=== PATIENT | female | born 1995 | race Caucasian/White ===

== ENCOUNTER 2017-12-12 16:55 | Emergency (ER) | payer OTHER ==
[2017-12-12 17:26] VITALS: BP 111/61
--- NOTE | 2017-12-12 18:00 | UC ---
Throat Pain/Nasal [place] HPI - HPI Summary HPI Summary: patient has a sore thraot for the past day - History of Current Complaint Chief Complaint: UCGeneralIllness Stated Complaint: SORE THROAT Time Seen by Provider: 12/12/17 17:21 Hx Obtained From: Patient Hx Last Menstrual Period: 11/20/17 ?: No Onset/Duration: Sudden Onset, Lasting Days Severity: Moderate Pain Intensity: 7 Associated Signs & Symptoms: Positive: Dysphagia - Allergies/Home Medications Allergies/Adverse Reactions: Allergies Allergy/AdvReac Type Severity Reaction Status Date / Time No Known Allergies Allergy Verified 12/12/17 17:26 Home Medications: Home Medications Albuterol 2.5MG/3ML (0.083%)* [Ventolin 2.5 MG/3 ML NEB.PATRIC*] 2.5 mg INH Q4H PRN 12/12/17 [History Confirmed 12/12/17] Albuterol HFA INHALER* [Ventolin HFA Inhaler*] 2 puff INH Q4H PRN 12/12/17 [ History Confirmed 12/12/17] Sertraline* [Zoloft*] 100 mg PO BEDTIME 12/12/17 [History Confirmed 12/12/17] PMH/Surg Hx/FS Hx/Imm Hx Previously Healthy: Yes - Surgical History Surgical History: None - Family History Known Family History: Positive: Hypertension - Social History Alcohol Use: Occasionally Alcohol Amount: socially Substance Use Type: None Smoking Status (MU): Never Smoked Tobacco Review of Systems Constitutional: Negative Skin: Negative Eyes: Negative ENT: Sore Throat Respiratory: Negative Cardiovascular: Negative Gastrointestinal: Negative Genitourinary: Negative Motor: Negative Neurovascular: Negative Musculoskeletal: Negative Neurological: Negative Psychological: Negative Is Patient Immunocompromised?: No All Other Systems Reviewed And Are Negative: Yes Physical Exam Triage Information Reviewed: Yes Appearance: Well-Appearing, Well-Nourished, Pain Distress Vital Signs: Initial Vital Signs Temp 97.5 F 12/12/17 17:21 Pulse 76 12/12/17 17:21 Resp 17 12/12/17 17:21 BP 111/61 12/12/17 17:21 Pulse Ox 100 12/12/17 17:21 Vital Signs Reviewed: Yes Eyes: Positive: Conjunctiva Clear ENT: Positive: Pharyngeal erythema, Tonsillar exudate Dental Exam: Normal Neck exam: Normal Neck: Positive: Supple, Nontender, No Lymphadenopathy Respiratory Exam: Normal Respiratory: Positive: Chest non-tender, Lungs clear, Normal breath sounds Cardiovascular Exam: Normal Cardiovascular: Positive: RRR, No Murmur, Pulses Normal Abdominal Exam: Normal Musculoskeletal Exam: Normal Neurological Exam: Normal Psychological Exam: Normal Skin Exam: Normal Throat Pain/Nasal Course/Dx - Course Course Of Treatment: hx obtained, meds reviewed, rapid strep neg, removed 4 tonsil stones - Differential Dx/Diagnosis Provider Diagnoses: tonsilolith, bilateral Discharge - Sign-Out/Discharge Documenting (check all that apply): Patient Departure All imaging exams completed and their final reports reviewed: Yes - Discharge Plan Condition: Stable Disposition: HOME Referrals: No Primary Care Phys,NOPCP [Primary Care Provider] - Additional Instructions: 1. you have tonsil stones. Some people develop them more than the others. you can pluck them out on your own as we did today. gargle with salt water a few times a day for the next few days. you can do this daily as well which will help minimize the development of the stones. Decreasing your dairy intake with help produce less mucus. - Billing Disposition and Condition Condition: STABLE Disposition: Home
== END 2017-12-12 18:04 | disposition home or self-care (01) ==
LOC: UCCORT 16:55
DX: J35.8 Other chronic diseases of tonsils and adenoids (principal); I10 Essential (primary) hypertension
CPT/HCPCS: 87651; 99201; G0463

== ENCOUNTER 2018-01-11 20:34 | Emergency (ER) | payer OTHER ==
[2018-01-11 20:46] VITALS: BP 119/64
[2018-01-11] MEDS ORDERED: predniSONE TAB* 20 MG PO ONE (21:31)
--- NOTE | 2018-01-11 21:41 | UC ---
Respiratory Complaint HPI - HPI Summary HPI Summary: The patient is a 22-year-old asthmatic with a 2 day history of nasal congestion , postnasal drip, cough and wheezing. She has had no fever or chills. His had no myalgias or arthralgias. She has had to use her rescue inhaler. - History of Current Complaint Chief Complaint: UCRespiratory Stated Complaint: COUGH, CONGESTION, HEADACHE Time Seen by Provider: 01/11/18 21:26 Hx Obtained From: Patient Hx Last Menstrual Period: 01/07/18 Onset/Duration: Gradual Onset, Lasting Days Timing: Constant Severity Initially: Mild Severity Currently: Moderate Pain Intensity: 0 Pain Scale Used: 0-10 Numeric Character: Cough: Nonproductive Aggravating Factors: Exertion, Deep Breaths Alleviating Factors: Bronchodilator Associated Signs And Symptoms: Positive: Wheezing, URI, Nasal Congestion - Allergies/Home Medications Allergies/Adverse Reactions: Allergies Allergy/AdvReac Type Severity Reaction Status Date / Time No Known Allergies Allergy Verified 01/11/18 20:42 PMH/Surg Hx/FS Hx/Imm Hx Previously Healthy: Yes Respiratory History: Asthma - Surgical History Surgical History: None - Family History Known Family History: Positive: Hypertension, Other - hypothyroidism - Social History Alcohol Use: Occasionally Alcohol Amount: socially Substance Use Type: None Smoking Status (MU): Never Smoked Tobacco - Immunization History Most Recent Tetanus Shot: UTD Review of Systems Constitutional: Negative Skin: Negative Eyes: Negative ENT: Nasal Discharge, Sinus Congestion Respiratory: Cough, Other - wheezing Cardiovascular: Negative Gastrointestinal: Negative Genitourinary: Negative Motor: Negative Neurovascular: Negative Musculoskeletal: Negative Neurological: Negative Psychological: Negative All Other Systems Reviewed And Are Negative: Yes Physical Exam Triage Information Reviewed: Yes Appearance: Well-Appearing, No Pain Distress, Well-Nourished Vital Signs: Initial Vital Signs Temp 98.8 F 01/11/18 20:43 Pulse 83 01/11/18 20:43 Resp 17 01/11/18 20:43 BP 119/64 01/11/18 20:43 Pulse Ox 100 01/11/18 20:43 Vital Signs Reviewed: Yes Eyes: Positive: Conjunctiva Clear ENT: Positive: Hearing grossly normal, Nasal congestion, Nasal drainage, TMs normal, Uvula midline. Negative: Tonsillar swelling, Tonsillar exudate, Trismus , Muffled voice, Hoarse voice, Sinus tenderness Dental Exam: Normal Neck: Positive: Supple, Nontender, No Lymphadenopathy Respiratory: Positive: No respiratory distress, No accessory muscle use, Wheezing - with forced expiration Cardiovascular: Positive: RRR, No Murmur, Pulses Normal Musculoskeletal: Positive: ROM Intact, No Edema Neurological: Positive: Alert Psychological Exam: Normal Skin Exam: Normal UC Diagnostic Evaluation - Laboratory O2 Sat by Pulse Oximetry: 100 - normal, not hypoxic Respiratory Course/Dx - Differential Dx/Diagnosis Provider Diagnoses: viral URI. bronchospasm Discharge - Sign-Out/Discharge Documenting (check all that apply): Patient Departure All imaging exams completed and their final reports reviewed: No Studies - Discharge Plan Condition: Stable Disposition: HOME Prescriptions: predniSONE [Deltasone 20 MG TAB] 40 mg PO DAILY #10 tab Patient Education Materials: Bronchospasm (ED) Referrals: No Primary Care Phys,NOPCP [Primary Care Provider] - Additional Instructions: use your rescue inhaler as directed (2 puffs 4x day as needed for wheezing) recheck for fever/worsening symptoms or if not markedly improved in 3-4 days - Billing Disposition and Condition Condition: STABLE Disposition: Home
== END 2018-01-11 21:40 | disposition home or self-care (01) ==
LOC: UCCORT 20:34
DX: J06.9 Acute upper respiratory infection, unspecified (principal); J98.01 Acute bronchospasm
CPT/HCPCS: 99212; G0463; J7512

== ENCOUNTER 2018-11-20 18:04 | Emergency (ER) | payer OTHER ==
[2018-11-20 18:30] VITALS: BP 116/63
--- NOTE | 2018-11-20 19:10 | UC ---
Head Injury HPI - HPI Summary HPI Summary: fell hitting left side of face while playing rugby--no loc, no n/v, no dizziness , visual deficits or neurological deficits - History Of Current Complaint Chief Complaint: UCHeadInjury Stated Complaint: HEAD INJURY Time Seen by Provider: 11/20/18 19:00 Hx Obtained From: Patient Hx Last Menstrual Period: started today ?: No Mechanism Of Injury: fall Onset/Duration: Sudden Onset Pain Intensity: 5 Pain Scale Used: 0-10 Numeric - some left cheek discomfort and headache Aggravating Factor(s): Nothing Alleviating Factor(s): Nothing Associated Signs And Symptoms: Positive: Negative - Allergies/Home Medications Allergies/Adverse Reactions: Allergies Allergy/AdvReac Type Severity Reaction Status Date / Time No Known Allergies Allergy Verified 11/20/18 18:30 PMH/Surg Hx/FS Hx/Imm Hx Previously Healthy: No Respiratory History: Asthma Psychological History: Depression - Surgical History Surgical History: None - Family History Known Family History: Positive: Hypertension, Other - hypothyroidism - Social History Occupation: Student Lives: Dormitory/Roommates Alcohol Use: Weekly Alcohol Amount: socially Substance Use Type: Marijuana Substance Use Comment - Amount & Last Used: occasional Smoking Status (MU): Never Smoked Tobacco - Immunization History Most Recent Tetanus Shot: UTD Review of Systems All Other Systems Reviewed And Are Negative: Yes Constitutional: Positive: Negative Skin: Positive: Negative Eyes: Positive: Negative ENT: Positive: Negative Respiratory: Positive: Negative Cardiovascular: Positive: Palpitations Gastrointestinal: Positive: Negative Genitourinary: Positive: Negative Motor: Positive: Negative Neurovascular: Positive: Negative Musculoskeletal: Positive: Negative Neurological: Positive: Negative Psychological: Positive: Negative Is Patient Immunocompromised?: No Physical Exam Triage Information Reviewed: Yes Appearance: Well-Appearing, No Pain Distress, Well-Nourished Vital Signs: Initial Vital Signs Temp 99.3 F 11/20/18 18:23 Pulse 66 11/20/18 18:23 Resp 18 11/20/18 18:23 BP 116/63 11/20/18 18:23 Pulse Ox 100 11/20/18 18:23 Vital Signs Reviewed: Yes Eye Exam: Normal Eyes: Positive: Conjunctiva Clear, Other: - perrla, eomi, fundascopic exam wnl ENT Exam: Normal ENT: Positive: Normal ENT inspection, Hearing grossly normal, Pharynx normal, TMs normal. Negative: Nasal congestion, Trismus, Muffled voice, Hoarse voice, Dental tenderness, Sinus tenderness Dental Exam: Normal Neck exam: Normal Neck: Positive: Supple, Nontender, No Lymphadenopathy Respiratory Exam: Normal Respiratory: Positive: Chest non-tender, Lungs clear, Normal breath sounds, No respiratory distress, No accessory muscle use Cardiovascular Exam: Normal Cardiovascular: Positive: RRR, No Murmur, Pulses Normal, Brisk Capillary Refill Musculoskeletal Exam: Normal Musculoskeletal: Positive: Strength Intact, ROM Intact, No Edema Neurological Exam: Normal Neurological: Positive: Alert, Muscle Tone Normal, Other: - no pronator drift, rhombery wnl, balence and gait wnl Psychological Exam: Normal Skin Exam: Normal Skin: Positive: Other - bruise right cheek-- Head Injury Course/Dx - Course Course Of Treatment: ice and ibuprofen follow with sports medicine for continue concussion assessment - Differential Dx/Diagnosis Provider Diagnosis: Head injury consultation, Bruise of face Discharge ED - Sign-Out/Discharge Documenting (check all that apply): Patient Departure All imaging exams completed and their final reports reviewed: No Studies - Discharge Plan Condition: Stable Disposition: HOME Patient Education Materials: Head Injury (ED) Referrals: Rea Cruz MD [Medical Doctor] - (call and ask for an appointment in the [place] office) - Billing Disposition and Condition Condition: STABLE Disposition: Home - Attestation Statements Provider Attestation: Per institutional requirements, I have reviewed the chart, however, I was not consulted specifically or made aware of this patient by the midlevel provider. I did not personally evaluate, interact with , or disposition this patient.
== END 2018-11-20 19:16 | disposition home or self-care (01) ==
LOC: UCCORT 18:04
DX: S09.90XA Unspecified injury of head, initial encounter (principal); S00.83XA Contusion of other part of head, initial encounter; W18.30XA Fall on same level, unspecified, initial encounter; Y93.63 Activity, rugby; Y92.328 Other athletic field as the place of occurrence of the external cause
CPT/HCPCS: 99211; G0463

== ENCOUNTER 2019-05-17 12:48 | Emergency (ER) | payer OTHER ==
[2019-05-17 13:44] VITALS: BP 119/67
--- NOTE | 2019-05-17 14:47 | UC ---
Hand/Wrist HPI - HPI Summary HPI Summary: 23-year-old female presents with complaints of persistent right hand pain, swelling, and bruising. States she punched a wall 6 days ago. She was evaluated at the [facility] emergency room at the time of injury but is unsure X-ray findings as she states that she was intoxicated at the time. Complains of pain at the base of the middle, ring, and little fingers of the right hand. States range of motion is slightly limited due to the pain and swelling. Denies any numbness or tingling. - History Of Current Complaint Chief Complaint: UCUpperExtremity Stated Complaint: RIGHT HAND INJURY Time Seen by Provider: 05/17/19 14:40 Hx Obtained From: Patient Hx Last Menstrual Period: 05/11/19 Pain Intensity: 4 - Allergies/Home Medications Allergies/Adverse Reactions: Allergies Allergy/AdvReac Type Severity Reaction Status Date / Time No Known Allergies Allergy Verified 05/17/19 13:38 Home Medications: Home Medications Albuterol 2.5MG/3ML (0.083%)* [Ventolin 2.5 MG/3 ML NEB.PATRIC*] 2.5 mg INH Q4H PRN 12/12/17 [History Confirmed 05/17/19] Albuterol HFA INHALER* [Ventolin HFA Inhaler*] 2 puff INH Q4H PRN 12/12/17 [ History Confirmed 05/17/19] Sertraline* [Zoloft*] 100 mg PO BEDTIME 12/12/17 [History Confirmed 05/17/19] PMH/Surg Hx/FS Hx/Imm Hx Respiratory History: Asthma Psychological History: Depression - Surgical History Surgical History: None - Family History Known Family History: Positive: Hypertension, Other - hypothyroidism - Social History Occupation: Student Lives: Dormitory/Roommates Alcohol Use: Weekly Alcohol Amount: socially Substance Use Type: Marijuana Substance Use Comment - Amount & Last Used: occasional Smoking Status (MU): Never Smoked Tobacco - Immunization History Most Recent Tetanus Shot: UTD Review of Systems All Other Systems Reviewed And Are Negative: Yes Constitutional: Positive: Negative Skin: Positive: Bruising Respiratory: Positive: Negative Cardiovascular: Positive: Negative Gastrointestinal: Positive: Negative Genitourinary: Positive: Negative Motor: Negative: Weakness Neurovascular: Negative: Decreased Sensation Musculoskeletal: Positive: Decreased ROM, Other: - See HPI Neurological/Mental Status: Positive: Negative Is Patient Immunocompromised?: No Physical Exam - Summary Physical Exam Summary: GENERAL APPEARANCE: Well developed, well nourished, alert and cooperative, and appears to be in no acute distress. CARDIAC: Normal S1 and S2. No S3, S4 or murmurs. Rhythm is regular. There is no peripheral edema, cyanosis or pallor. Extremities are warm and well perfused. Capillary refill is less than 2 seconds. Peripheral pulses intact. LUNGS: Clear to auscultation without rales, rhonchi, wheezing or diminished breath sounds. ABDOMEN: Positive bowel sounds. Soft, nondistended, nontender. No guarding or rebound. No masses or hepatosplenomegally. MUSKULOSKELETAL: Normal muscular development. Normal gait. EXTREMITIES: Tenderness over the 3rd, 4th, and 5th distal metacarpals of the right hand without gross deformity. Moderate ecchymosis and edema present to the dorsal right hand. Full ROM. Circulation and sensation intact. SKIN: Skin normal color, texture and turgor with no lesions or eruptions. Triage Information Reviewed: Yes Vital Signs: Initial Vital Signs Temp 97.7 F 05/17/19 13:39 Pulse 78 05/17/19 13:39 Resp 18 05/17/19 13:39 BP 119/67 05/17/19 13:39 Pulse Ox 98 05/17/19 13:39 Vital Signs Reviewed: Yes Diagnostics - Radiology No standard instances Radiology Interpretation Completed By: Radiologist Summary of Radiographic Findings: Order Information: HAND - RIGHT MINIMUM 3 VIEWS. HISTORY: pain, bruising, swelling s/p punching wall . COMPARISONS: None relevant available at the time of dictation. VIEWS: 4, Frontal, lateral, and oblique views of the right hand. FINDINGS: BONE DENSITY: Normal. BONES: There is no displaced fracture. JOINTS: There is no arthropathy. ALIGNMENT: There is no dislocation. SOFT TISSUES: There is soft tissue swelling along the dorsal aspect of the hand. OTHER FINDINGS: None. IMPRESSION: SOFT TISSUE SWELLING. NO ACUTE OSSEOUS INJURY. Hand/Wrist Course/Dx - Course Course Of Treatment: 23-year-old female presents with complaints of persistent right hand pain, swelling, and bruising. States she punched a wall 6 days ago. She was evaluated at the [facility] emergency room at the time of injury but is unsure X-ray findings as she states that she was intoxicated at the time. Complains of pain at the base of the middle, ring, and little fingers of the right hand. States range of motion is slightly limited due to the pain and swelling. Denies any numbness or tingling. Afebrile. Vital signs stable. Patient had tenderness over the 3rd, 4th, and 5th distal metacarpals of the right hand without gross deformity. Moderate ecchymosis and edema present to the dorsal right hand. Full ROM. Circulation and sensation intact. Remainder of exam unremarkable. X-ray showed no acute osseous injury. Reviewed results with the patient. Recommending conservative treatment for her right hand contusion. She is to follow-up with orthopedic surgery in 5-7 days if symptoms are not improving. Anticipatory guidance and warning symptoms were reviewed with patient. Verbalizes understanding and agrees with plan of care. - Differential Dx/Diagnosis Differential Diagnosis/HQI/PQRI: Contusion, Dislocation, Fracture, Sprain Provider Diagnosis: Contusion of right hand Discharge ED - Sign-Out/Discharge Documenting (check all that apply): Patient Departure All imaging exams completed and their final reports reviewed: Yes - Discharge Plan Condition: Stable Disposition: HOME Patient Education Materials: Contusion in Adults (ED) Referrals: No Primary Care Phys,NOPCP [Primary Care Provider] - Mitch Torres MD [Medical Doctor] - 5 Days (Call for appointment.) Additional Instructions: The x-ray performed in the clinic today showed no evidence of a fracture. Rest the hand as much as possible. Apply ice to the affected area for 15-20 minutes at least 4 times a day to help with the pain and swelling. Elevate the hand to help reduce swelling. Take acetaminophen (Tylenol) or ibuprofen (Advil, Motrin) according to directions as needed for pain. Follow up with orthopedic surgery in 5-7 days if symptoms do not improve. Seek immediate medical attention if you have severe pain not managed with pain medication, you lose function of the hand, develop numbness or tingling in the hand or fingers, or have any worsening of symptoms. - Billing Disposition and Condition Condition: STABLE Disposition: Home - Attestation Statements Provider Attestation: This patient was not seen by me. I was available for consult. Chart reviewed. MAKAYLA
== END 2019-05-17 15:43 | disposition home or self-care (01) ==
LOC: UCCORT 12:48
DX: S60.221D Contusion of right hand, subsequent encounter (principal); W22.01XD Walked into wall, subsequent encounter; J45.909 Unspecified asthma, uncomplicated; F32.9 Major depressive disorder, single episode, unspecified; Z79.899 Other long term (current) drug therapy; M79.89 Other specified soft tissue disorders
CPT/HCPCS: 99211; G0463